=== PATIENT | male | born 1995 | race Two or more races ===

== ENCOUNTER 2017-05-08 19:50 | Emergency (ER) | payer MEDICAID, OTHER ==
[2017-05-08] MEDS ORDERED: RABIES VACCINE (PCEC)/PF 2.5 UNIT/1 ML KIT IM ONE (20:21)
[2017-05-08] MEDS ORDERED: RABIES IMMUNE GLOBULIN INJ/PF 300 UNIT/2 ML SDV IM ONE (20:21)
[2017-05-08] MEDS ORDERED: AMOXICILLIN TRIHYD 250 MG CAPSULE PO ONE (20:21)
[2017-05-08] MEDS ORDERED: AMOXICILLIN TR/POT CLAVULANATE 500-125 MG TAB PO ONE (20:21)
[2017-05-08] MEDS ORDERED: IBUPROFEN 400 MG TABLET PO ONE (20:23)
--- NOTE | 2017-05-08 20:31 | ER Document Report ---
HPI - HPI Patient complains to provider of: Dog bite Onset: This evening Onset/Duration: Sudden Quality of pain: Achy Pain Level: 1 Context: Patient states that he was bit by a stray dog in his neighborhood. Patient states it was dark and he is not able to describe what the animal look liked. Patient with animal bite to right thigh. Patient's tetanus immunization is currently up-to-date. Associated Symptoms: Other - Animal bite to right thigh Exacerbated by: Movement Relieved by: Denies Similar symptoms previously: No Recently seen / treated by doctor: No - ROS ROS below otherwise negative: Yes Systems Reviewed and Negative: Yes All other systems reviewed and negative - CONSTITUTIONAL Constitutional: DENIES: Fever - NEURO Neurology: DENIES: Weakness - MUSCULOSKELETAL Musculoskeletal: REPORTS: Extremity pain - DERM Skin Color: Ecchymosis Skin Problems: Abrasion, Puncture Wound Past Medical History - General Information source: Patient, Parent - Social History Smoking Status: Current Every Day Smoker Smoking Education Provided: Yes Frequency of alcohol use: None Drug Abuse: None Occupation: None Lives with: Family Family History: CAD, CVA, Thyroid Disfunction - Medical History Medical History: Other - Deaf Psychiatric Medical History: Reports: Hx Attention Deficit Hyperactivity Disorder Past Surgical History: Reports: Hx Tonsillectomy, Other - Cochlear implant - Immunizations Immunizations up to date: Yes Hx Diphtheria, Pertussis, Tetanus Vaccination: Yes Vertical Provider Document - CONSTITUTIONAL Agree With Documented VS: Yes Exam Limitations: Other - deaf General Appearance: WD/WN, No Apparent Distress - INFECTION CONTROL TRAVEL OUTSIDE OF THE [place] IN LAST 30 DAYS: No - HEENT HEENT: Atraumatic, Normocephalic - NECK Neck: Normal Inspection - RESPIRATORY Respiratory: Breath Sounds Normal, No Respiratory Distress O2 Sat by Pulse Oximetry: 99 - CARDIOVASCULAR Cardiovascular: Regular Rate, Regular Rhythm - MUSCULOSKELETAL/EXTREMETIES Musculoskeletal/Extremeties: MAEW - NEURO Level of Consciousness: Awake, Alert, Appropriate Motor/Sensory: No Motor Deficit - DERM Integumentary: Warm, Dry Notes: Abrasion to right thigh with surrounding ecchymosis Course - Vital Signs Vital signs: Temp Pulse Resp BP Pulse Ox 97.8 F 75 18 118/69 99 05/08/17 20:07 05/08/17 20:07 05/08/17 20:07 05/08/17 20:07 01/31/18 20:07 Discharge - Discharge Clinical Impression: Need for post exposure prophylaxis for rabies Dog bite Qualifiers: Encounter type: initial encounter Qualified Code(s): W54.0XXA - Bitten by dog, initial encounter Condition: Stable Disposition: HOME, SELF-CARE Instructions: Animal Bites ([facility]), Augmentin ([facility]), Rabies Prophyllaxis ([facility]) Additional Instructions: Return immediately for any new or worsening symptoms Followup with your primary care provider, call tomorrow to make a followup appointment Return on May 11, May 15, and May 22 for repeat rabies vaccination. Prescriptions: Amox Tr/Potassium Clavulanate [Augmentin 875-125 Tablet] 1 tab PO BID 7 Days tablet Forms: Smoking Cessation Education
[2017-05-08 21:33] VITALS: BP 102/59
== END 2017-05-08 21:33 | disposition home or self-care (01) ==
LOC: ER 19:50
DX: S71.151A Open bite, right thigh, initial encounter (principal); W54.0XXA Bitten by dog, initial encounter; Y92.830 Public park as the place of occurrence of the external cause; F17.200 Nicotine dependence, unspecified, uncomplicated; Z23 Encounter for immunization
CPT/HCPCS: 99283; 96372; 90471; 90675; 90376; J3490 ×3

== ENCOUNTER → 2019-09-11 | Outpatient (CLI) | payer MEDICAID ==
--- NOTE | 2019-09-11 09:26 | RADIOLOGY REPORT (SQ) ---
EXAM DESCRIPTION: SCOLIOSIS SERIES IMAGES COMPLETED DATE/TIME: 09/11/2019 8:54 am REASON FOR STUDY: ADOLESCENT IDIOPATHIC SCOLIOSIS, THORACOLUMBAR REGION M41.125 ADOLESCENT IDIOPATH IC SCOLIOSIS, THORACOLUMBAR REGIO COMPARISON: 07/20/2014 NUMBER OF VIEWS: One view. TECHNIQUE: Standing AP exam of the thoracolumbar spine with measurement of the THAYER angles. LIMITATIONS: None. FINDINGS: GENERALIZED BONY FINDINGS: L5 is considered transitional, sacralized. No worrisome bone l esions. THORACIC SPINE: APEX: T10 ANGULATION: Curvature convex to the right. DEGREES: 48 LUMBAR SPINE: APEX: L3-4 ANGULATION: Curvature convex to the left. DEGREES: 23 CHANGE: Both thoracic and lumbar current set of increased since 2014. OTHER: No other significant findings. IMPRESSION: PROGRESSIVE SCOLIOSIS WITH MEASUREMENTS ABOVE. TECHNICAL DOCUMENTATION: JOB ID: [id number] 2010 [email or web address]- All Rights Reserved Reading location - IP/workstation name: [email or web address]
== END ==
LOC: OD 08:43
PROVIDERS: ATTEND Family Medicine
DX: M41.125 Adolescent idiopathic scoliosis, thoracolumbar region (principal)
CPT/HCPCS: 72082